=== PATIENT | female | born 1990 | race Caucasian/White ===

== ENCOUNTER 2020-03-08 09:28 | Inpatient (IN) | payer MEDICAID ==
[2020-03-08 10:16] LABS: APPEARANCE,URINE CLEAR; BILIRUBIN,URINE NEGATIVE (NEGATIVE); COLOR,URINE YELLOW; GLUCOSE, URINE NEGATIVE (NEGATIVE); KETONES,URINE NEGATIVE (NEGATIVE); LEUKOCYTE ESTERASE,URINE TRACE (NEGATIVE); NITRITE,URINE NEGATIVE (NEGATIVE); PROTEIN,URINE NEGATIVE (NEGATIVE); URINE SPECIFIC GRAVITY 1.003; UROBILINOGEN,URINE NEGATIVE mg/dL (<2.0)
--- NOTE | 2020-03-08 10:28 | Admission Physical ---
Datetime Report Generated by CPN: 03/08/2020 10:28 CURRENT ADMISSION Hx Assessment: The History has been Reviewed and is Current Chief Complaint: Sent from OB Office for Evaluation and Treatment - Please Specify Indication for Induction: Chronic Secondary HTN (Specify Cause); Gestational HTN; PreEclampsia Admit Impression : Term, Intrauterine Admit Plan: Admit to Unit; Initiate Labor Induction Protocol ALLERGIES Medication Allergies: No Known Allergies (03/08/2020) OBSTETRICAL HISTORY EDC: 03/10/2020 00:00 : 1 Para: 0 Term: 0 : 0 SAB: 0 IAB: 0 Ectopic: 0 Livin Cesareans: 0 VBACs: 0 Multiple Births: 0 PHYSICAL EXAM General: Normal Heart: Normal Lungs: Normal Abdomen: Normal Extremities: Normal Pelvic Type: Adequate Vital Signs: Reviewed Details Vital Signs: severe-mild range MEMBRANES Membranes: Intact FETUS A EGA: 39.5 Monitoring: External US Decelerations: None FHR Category: Category I Presentation: Vertex Admit Comment: 30yo G1 @ 39w5d sent from office with severe range bp which was also elevated on arrival at [facility]. Pt is AB pos,GBS neg, RI. Significant hx this of GDM A1, chlamydia @ [facility], anemia, anxiety,e-coli UTI with negative EDDIE. First elevation in BP was noted at 6wga at [facility] and then borderline bps until 3rd trim when they became elevated again. Pt completed a 24hr urine at 35wga and it was over 3000mg; but pt reported she had been taking a tea that changed the color of her urine and wanted to repeat 24hr urine once she stopped the tea. Pt repeated 24hr x2 with results of less than 300mg (166,127) continues to deny all s/s of pre-e but BPs remained elevated. PIH labs on arrival today but plan was made to go ahead with IOL secondary to CHTN vs pre-e vs GHTN. FOB not involved and mother is the support person with pt today. Dr. Rogel is the OB design verification engineer today and aware of plan. INFORMED CONSENT Assignment: Pushpa Rogel MD Signature: with User ID: [email or web address] : with User ID: [email or web address]
[2020-03-08 10:31] LABS: URINE AMPHETAMINES SCREEN NEGATIVE; URINE BARBITURATES SCREEN NEGATIVE; URINE BENZODIAZEPINES SCREEN NEGATIVE; URINE COCAINE SCREEN NEGATIVE; URINE MARIJUANA (THC) SCREEN NEGATIVE; URINE METHADONE SCREEN NEGATIVE; URINE PHENCYCLIDINE SCREEN NEGATIVE
[2020-03-08 10:36] LABS: URINE CREATININE 26.8 mg/dL (16-327); URINE PROTEIN 53.2 mg/dL (<12)
[2020-03-08 10:49] LABS: ABSOLUTE LYMPHOCYTES (AUTO) 1.9 10^3/uL (0.5-4.7); ABSOLUTE MONOCYTES (AUTO) 0.4 10^3/uL (0.1-1.4); ABSOLUTE NEUT (AUTO) 5.5 10^3/uL (1.7-8.2); BASOPHILS % (AUTO) 0.5 % (0-2); EOSINOPHILS % (AUTO) 0.5 % (0-6); HEMATOCRIT 32.6 % (36.0-47.0); HEMOGLOBIN 11.6 g/dL (12.0-15.5); MEAN CORPUSCULAR HEMOGLOBIN 31.9 pg (27.0-33.4); MEAN CORPUSCULAR HGB CONC 35.5 g/dL (32.0-36.0); MEAN CORPUSCULAR VOLUME 90 fl (80-97); MONOCYTES % (AUTO) 5.6 % (3-13); PLATELET COUNT 100 10^3/uL (150-450); RED BLOOD COUNT 3.63 10^6/uL (3.72-5.28); RED CELL DISTRIBUTION WIDTH 13.8 % (11.5-14.0); SEGMENTED NEUTROPHILS % (AUTO) 69.4 % (42-78); TOTAL CELLS COUNTED % (AUTO) 100 %
[2020-03-08] MEDS ORDERED: OXYTOCIN/NORMAL SALINE 20 UNIT/1,000 ML RTUINJ IV PRN (11:03)
[2020-03-08 11:09] LABS: ALBUMIN 3.1 g/dL (3.5-5.0); ALKALINE PHOSPHATASE 209 U/L (38-126); ANION GAP 8 (5-19); ASPARTATE AMINO TRANSFERASE 26 U/L (14-36); BILIRUBIN,TOTAL 0.2 mg/dL (0.2-1.3); BLOOD UREA NITROGEN 4 mg/dL (7-20); CALCIUM 8.8 mg/dL (8.4-10.2); CARBON DIOXIDE 19 mmol/L (22-30); CHLORIDE 107 mmol/L (98-107); GLUCOSE 119 mg/dL (75-110); POTASSIUM 3.6 mmol/L (3.6-5.0); TOTAL PROTEIN 6.1 g/dL (6.3-8.2); URIC ACID 4.2 mg/dL (2.5-6.2)
[2020-03-08] MEDS ORDERED: MISOPROSTOL 0.2 MG TABLET ONE (11:18)
[2020-03-08] MEDS ORDERED: OXYTOCIN 10 UNIT/ML VIAL ONE (11:18)
[2020-03-08] MEDS ORDERED: OXYTOCIN/NORMAL SALINE 20 UNIT/1,000 ML RTUINJ ONE (11:18)
[2020-03-08] MEDS ORDERED: LIDOCAINE 1% INJ-PF (10 MG/ML) 30 ML SDV ONE (11:18)
[2020-03-08] MEDS ORDERED: MAG HYDROX/AL HYDROX/SIMETH SUSP 30 ML UDCUP ONE (12:38)
[2020-03-08] MEDS ORDERED: HYDRALAZINE HCL INJ/PF 20 MG/1 ML SDV IV ONE (12:44)
[2020-03-08] MEDS ORDERED: MAG HYDROX/AL HYDROX/SIMETH SUSP 30 ML UDCUP PO ONE (12:44)
[2020-03-08] MEDS ORDERED: RINGERS SOLUTION,LACTATED 1,000 ML IV PRN (12:45)
[2020-03-08] MEDS ORDERED: HYDRALAZINE HCL INJ/PF 20 MG/1 ML SDV ONE (12:47)
[2020-03-08] MEDS ORDERED: PROMETHAZINE HCL INJ 25 MG/1 ML VIAL IV ONE (12:54)
[2020-03-08] MEDS ORDERED: PROMETHAZINE HCL INJ 25 MG/1 ML VIAL ONE (12:59)
--- NOTE | 2020-03-08 14:35 | Warning Signs in Babies ---
VOD Warning Signs Datetime Report Generated by [facility]: 03/08/2020 14:35 VOD#608 -Warning Signs in Babies: Viewed with Parent(s)/Family (03/08/2020 09:44:Magdalena Johnson RN)
[2020-03-08 15:07] LABS: HEMATOCRIT 34.4 % (36.0-47.0); HEMOGLOBIN 12.1 g/dL (12.0-15.5); MEAN CORPUSCULAR HEMOGLOBIN 31.6 pg (27.0-33.4); MEAN CORPUSCULAR HGB CONC 35.1 g/dL (32.0-36.0); MEAN CORPUSCULAR VOLUME 90 fl (80-97); PLATELET COUNT 100 10^3/uL (150-450); RED BLOOD COUNT 3.81 10^6/uL (3.72-5.28); RED CELL DISTRIBUTION WIDTH 14.2 % (11.5-14.0); WHITE BLOOD COUNT 8.5 10^3/uL (4.0-10.5)
[2020-03-08] MEDS ORDERED: ONDANSETRON HCL INJ/PF 4 MG/2 ML SDV ONE ×2 (18:39→21:35)
[2020-03-08] MEDS ORDERED: ONDANSETRON HCL INJ/PF 4 MG/2 ML SDV IV ONE ×2 (18:39→21:30)
[2020-03-08] MEDS ORDERED: DEXTROSE 5%-LACTATED RINGERS 250 ML IV PRN (19:20)
[2020-03-08 20:20] LABS: HEMATOCRIT 35.6 % (36.0-47.0); HEMOGLOBIN 12.3 g/dL (12.0-15.5); MEAN CORPUSCULAR HEMOGLOBIN 31.5 pg (27.0-33.4); MEAN CORPUSCULAR HGB CONC 34.7 g/dL (32.0-36.0); MEAN CORPUSCULAR VOLUME 91 fl (80-97); PLATELET COUNT 101 10^3/uL (150-450); RED BLOOD COUNT 3.92 10^6/uL (3.72-5.28); RED CELL DISTRIBUTION WIDTH 14.3 % (11.5-14.0); WHITE BLOOD COUNT 11.9 10^3/uL (4.0-10.5)
[2020-03-08] MEDS ORDERED: FAMOTIDINE INJ/PF 20 MG/2 ML SDV IV ONE ×2 (21:30→21:35)
[2020-03-08] MEDS ORDERED: NALBUPHINE HCL INJ 10 MG/1 ML AMPULE INJ ONE (21:35)
[2020-03-08] MEDS ORDERED: NALBUPHINE HCL INJ 10 MG/1 ML AMPULE ONE (21:35)
[2020-03-09] MEDS ORDERED: EPHEDRINE SULFATE INJ 50 MG/1 ML AMPULE ONE (00:13)
[2020-03-09] MEDS ORDERED: BUPIVACAINE HCL 0.25 % INJ/PF (2.5 MG/1 ML) 30 ML VIAL ONE (00:13)
[2020-03-09] MEDS ORDERED: FENTANYL/BUPIVACAINE/NS/PF 300 MCG/150 ML RTUINJ EPI ONE (00:13)
[2020-03-09] MEDS ORDERED: OXYTOCIN/NORMAL SALINE 20 UNIT/1,000 ML RTUINJ ONE (05:07)
[2020-03-09] MEDS ORDERED: OXYTOCIN/NORMAL SALINE 20 UNIT/1,000 ML RTUINJ IV PRN (06:43)
[2020-03-09] MEDS ORDERED: DIPH/PERTUSS(ACELL)/TETANUS VAC/PF 0.5 ML SYR (>=10YO) IM PRN (06:43)
[2020-03-09] MEDS ORDERED: BENZOCAINE/MENTHOL AEROSOL SPRAY 56 ML TOP PRN (06:43)
[2020-03-09] MEDS ORDERED: GLYCERIN/WITCH HAZEL LEAF 1 EACH MED..WIPE TP PRN (06:43)
[2020-03-09] MEDS ORDERED: ACETAMINOPHEN 325 MG TABLET PO PRN (06:43)
[2020-03-09] MEDS ORDERED: MEASLES,MUMPS&RUBELLA VACC/PF 0.5 ML VIAL SUBCUT PRN (06:43)
[2020-03-09] MEDS ORDERED: NA PHOS,M-B/NA PHOS,DI-BA (ADULT) 133 ML ENEMA PR PRN (06:43)
[2020-03-09] MEDS ORDERED: PSEUDOEPHEDRINE HCL 30 MG TABLET PO PRN (06:43)
[2020-03-09] MEDS ORDERED: ZOLPIDEM TARTRATE 5 MG TABLET PO PRN (06:43)
[2020-03-09] MEDS ORDERED: ACETAMINOPHEN WITH CODEINE #3 TABLET PO PRN ×2 (06:43)
[2020-03-09] MEDS ORDERED: PROMETHAZINE HCL 25 MG TABLET PO PRN (06:43)
[2020-03-09] MEDS ORDERED: PROMETHAZINE HCL 25 MG SUPP.RECT PR PRN (06:43)
[2020-03-09] MEDS ORDERED: PROMETHAZINE HCL INJ 25 MG/1 ML VIAL IV PRN (06:43)
[2020-03-09] MEDS ORDERED: DIPHENHYDRAMINE HCL 25 MG CAPSULE PO PRN (06:43)
[2020-03-09] MEDS ORDERED: MAGNESIUM HYDROXIDE SUSP 30 ML UDCUP PO PRN (06:43)
[2020-03-09] MEDS ORDERED: DIBUCAINE 1% OINTMENT 28 GM TP PRN (06:43)
[2020-03-09] MEDS ORDERED: MISOPROSTOL 0.2 MG TABLET PR PRN (06:43)
--- NOTE | 2020-03-09 08:06 | PDOC CONSULTATION ---
Consultation Consult Date: 03/09/20 Attending physician:: THERESA CHE Provider Consulted: TESSIE SPEARS Consult reason:: Thrombocytopenia History of Present Illness Admission Date/PCP: 03/08/20 10:06 LOUIS LANDEROS CNM Patient complains of: Easy bruising History of Present Illness: ROMMEL FERNANDEZ is a 30 year old female w/ recent and delivery this am, was found recently to have preeclampsia, reviewed labs and 24 hr urine protein was over 3g/24hr. Albumin low. Plt ct on admit was 100 yestterday, repeated this am was 101. Labs from [address] done in [employer] office in january was 145. Pt notes to Pharmacoepidemiologist that she has had some easy bruising and gum bleeding recently. Coags/fibrinogen and peripheral smear is pending. No other active bleeding that is out of the ordinary noted thus far. Past Medical History Medical History: None Past Surgical History Past Surgical History: Reports: None Social History Information Source: Patient Smoking Status: Unknown if Ever Smoked Frequency of Alcohol Use: Rare Hx Recreational Drug Use: No Drugs: None Hx Prescription Drug Abuse: No - Advance Directive Resuscitation Status: Full Code Family History Family History: Reviewed & Not Pertinent Parental Family History Reviewed: Yes Children Family History Reviewed: Yes Sibling(s) Family History Reviewed.: Yes Medication/Allergy Home Medications: Promethazine HCl [Phenergan 25 mg Tablet] 25 - 50 mg PO ASDIR PRN #12 tablet 03/31/13 Famotidine [Pepcid] 20 mg PO DAILY 03/08/20 Ferrous Sulfate [Ferrousul] 325 mg PO BID 03/08/20 Vitamin [-U Multiple Vitamin Capsule] 1 cap PO DAILY 03/08/20 Allergies/Adverse Reactions: No Known Allergies Allergy (Unverified 03/08/20 09:38) Review of Systems Constitutional: ABSENT: chills, fever(s), headache(s), weight gain, weight loss Eyes: ABSENT: visual disturbances Ears: ABSENT: hearing changes Cardiovascular: ABSENT: chest pain, dyspnea on exertion, edema, orthropnea, palpitations Respiratory: ABSENT: cough, hemoptysis Gastrointestinal: ABSENT: abdominal pain, constipation, diarrhea, hematemesis, hematochezia, nausea, vomiting Genitourinary: ABSENT: dysuria, hematuria Musculoskeletal: ABSENT: joint swelling Integumentary: ABSENT: rash, wounds Neurological: ABSENT: abnormal gait, abnormal speech, confusion, dizziness, focal weakness, syncope Psychiatric: ABSENT: anxiety, depression, homidical ideation, suicidal ideation Endocrine: ABSENT: cold intolerance, heat intolerance, polydipsia, polyuria Hematologic/Lymphatic: ABSENT: easy bleeding, easy bruising Physical Exam Vital Signs: Intake & Output 03/08/20 03/09/20 03/10/20 06:59 06:59 06:59 Weight 81.8 kg Results Laboratory Results: 03/08/20 19:58 03/08/20 10:00 03/08/20 03/08/20 03/08/20 09:40 10:00 10:00 WBC 8.0 RBC 3.63 L Hgb 11.6 L Hct 32.6 L MCV 90 MCH 31.9 MCHC 35.5 RDW 13.8 Plt Count 100 L Seg Neutrophils % 69.4 Sodium 134.4 L Potassium 3.6 Chloride 107 Carbon Dioxide 19 L Anion Gap 8 BUN 4 L Creatinine 0.47 L Est GFR ( Amer) > 60 Glucose 119 H Uric Acid 4.2 Calcium 8.8 Total Bilirubin 0.2 AST 26 Alkaline Phosphatase 209 H Total Protein 6.1 L Albumin 3.1 L Urine Color YELLOW Urine Appearance CLEAR Urine pH 7.0 Ur Specific [place] 1.003 Urine Protein NEGATIVE Urine Glucose (UA) NEGATIVE Urine Ketones NEGATIVE Urine Blood SMALL H Urine Nitrite NEGATIVE Ur Leukocyte Esterase TRACE H Urine WBC (Auto) 2 Urine RBC (Auto) 0 Blood Type Antibody Screen 03/08/20 03/08/20 03/08/20 10:00 14:37 19:58 WBC 8.5 11.9 H RBC 3.81 3.92 Hgb 12.1 12.3 Hct 34.4 L 35.6 L MCV 90 91 MCH 31.6 31.5 MCHC 35.1 34.7 RDW 14.2 H 14.3 H Plt Count 100 L 101 L Seg Neutrophils % Sodium Potassium Chloride Carbon Dioxide Anion Gap BUN Creatinine Est GFR ( Amer) Glucose Uric Acid Calcium Total Bilirubin AST Alkaline Phosphatase Total Protein Albumin Urine Color Urine Appearance Urine pH Ur Specific [place] Urine Protein Urine Glucose (UA) Urine Ketones Urine Blood Urine Nitrite Ur Leukocyte Esterase Urine WBC (Auto) Urine RBC (Auto) Blood Type AB POSITIVE Antibody Screen NEGATIVE Assessment & Plan - Diagnosis (1) Thrombocytopenia affecting Is this a current diagnosis for this admission?: Yes Plan: Maybe related to preeclampsia or just thrombocytopenia of , ITP or DIC another possibility, coags pending, most likely will resolve with time. Epidural catheter can be removed, neurosurgical/spine interventions can be done very safely w/ plt ct 100. Will follow. - Time Time Spent: 50 to 70 Minutes
[2020-03-09 08:13] LABS: HEMATOCRIT 33.5 % (36.0-47.0); HEMOGLOBIN 11.8 g/dL (12.0-15.5); MEAN CORPUSCULAR HEMOGLOBIN 31.9 pg (27.0-33.4); MEAN CORPUSCULAR HGB CONC 35.2 g/dL (32.0-36.0); MEAN CORPUSCULAR VOLUME 91 fl (80-97); PLATELET COUNT 105 10^3/uL (150-450); RED CELL DISTRIBUTION WIDTH 13.9 % (11.5-14.0); WHITE BLOOD COUNT 17.4 10^3/uL (4.0-10.5)
[2020-03-09 08:19] LABS: PARTIAL THROMBOPLASTIN TIME 26.6 SEC (23.5-35.8)
[2020-03-09 08:38] LABS: ALBUMIN 2.7 g/dL (3.5-5.0); ALKALINE PHOSPHATASE 220 U/L (38-126); ANION GAP 8 (5-19); ASPARTATE AMINO TRANSFERASE 34 U/L (14-36); BILIRUBIN,TOTAL 0.4 mg/dL (0.2-1.3); BLOOD UREA NITROGEN 4 mg/dL (7-20); CALCIUM 8.1 mg/dL (8.4-10.2); CARBON DIOXIDE 19 mmol/L (22-30); CHLORIDE 107 mmol/L (98-107); GLUCOSE 132 mg/dL (75-110); POTASSIUM 3.6 mmol/L (3.6-5.0); TOTAL PROTEIN 5.5 g/dL (6.3-8.2); URIC ACID 4.9 mg/dL (2.5-6.2)
[2020-03-09 08:44] LABS: ABSOLUTE LYMPHOCYTES# (MANUAL) 1.7 10^3/uL (0.5-4.7); ABSOLUTE MONOCYTES # (MANUAL) 0.9 10^3/uL (0.1-1.4); BASOPHILS % (MANUAL) 0 % (0-2); EOSINOPHILS % (MANUAL) 0 % (0-6); LYMPHOCYTES % (MANUAL) 10 % (13-45); MONOCYTES % (MANUAL) 5 % (3-13); SEGMENTED NEUTROPHILS % (MAN) 85 % (42-78); TOTAL CELLS COUNTED 100
[2020-03-09 08:47] LABS: PLATELET COMMENT DECREASED; PLATELET LARGE PRESENT
[2020-03-09] MEDS ORDERED: BENZOCAINE/MENTHOL AEROSOL SPRAY 56 ML ONE (08:47)
[2020-03-09 08:48] LABS: OVALOCYTES SLIGHT; POLYCHROMASIA SLIGHT; TOXIC VACUOLATION PRESENT
[2020-03-09 08:56] LABS: PROTHROMBIN TIME 13.2 SEC (11.4-15.4)
--- NOTE | 2020-03-09 09:37 | Delivery Summary ---
Del Sum A-C Datetime Report Generated by CPN: 03/09/2020 09:36 DELIVERY PERSONNEL DELIVERY PERSONNEL: [id number] Delivery Doctor:: Pushpa Rogel MD Anesthesiologist:: Rodriguez SAFETY REPRESENTATIVE:: Caryn Ayoub CRNA Labor and Delivery Nurse:: Chanelle Barrios RNroad train driver Nurse:: REBECCA Figueroa Corrosion Technician/STORAGE RECEIPT POSTER: ST Rema Corrosion Technician/STORAGE RECEIPT POSTER: Raeann Taye, FORENSIC SPECIALIST MATERNAL INFORMATION Delivery Anesthesia: Epidural Medications After Delivery: Cytotec 1000mcg Per Rectum/Vagina Estimated Blood Loss (ml): 100 Delivery QBL: 100 Maternal Complications: None Provider Comments: VMI delivered in [facility] presentation with compound right hand. Shoulders and body delivered without difficulty. cord doubly clamped and cut and to maternal abdomen for NRP. Placenta delivered intact spontaneously. FF at U. superficial perineal laceration with good hemostasis after repair. Bladder drained to intermittent atony. Cytotec 1000mcg per rectum given. Mother and baby stable upon provider leaving the room. LABOR SUMMARY EDC: 03/10/2020 00:00 No. Babies in Womb: 1 Attempted: No Labor Anesthesia: Epidural LABOR INFORMATION Reason for Induction: Pre-Eclampsia Onset of Labor: 03/09/2020 01:09 Complete Dilatation: 03/09/2020 04:18 Cervical Ripening Agents: Cervidil Oxytocin: Induction Group B Beta Strep: Negative Antibiotics # of Doses: n/a Steroids Given: None Reason Steroids Not Administered: Not Applicable MEMBRANES Membranes Rupture Method: Artificial Rupture of Membranes: 03/08/2020 16:10 Length of Rupture (hr): 14.08 Amniotic Fluid Color: Clear Amniotic Fluid Amount: Moderate Amniotic Fluid Odor: None STAGES OF LABOR Stage 1 hr: 3 Stage 1 min: 9 Stage 2 hr: 1 Stage 2 min: 57 Stage 3 hr: 0 Stage 3 min: 5 Total Time in Labor hr: 5 Total Time in Labor min: 11 VAGINAL DELIVERY Episiotomy: None Laceration #1: Perineal Laceration Extension #1: N/A Laceration Repair: Yes Laceration Repair Note: superficial perineal laceration, good hemostasis with repair Sponge Count Correct: Yes Sharps Count Correct: Yes CSECTION DELIVERY Primary Indication: N/A Secondary Indication: N/A CSection Incidence: N/A Labor: N/A Elective: N/A CSection Incision: N/A BABY A INFORMATION Infant Delivery Date/Time: 03/09/2020 06:15 Method of Delivery: Vaginal Born in Route : No : N/A Forceps: N/A Vacuum Extraction: N/A Shoulder Dystocia : No PRESENTATION/POSITION BABY A Presentation: Cephalic Cephalic Presentation: Vertex Vertex Position: Right Occipital Anterior Breech Presentation: N/A PLACENTA INFORMATION BABY A Placenta Delivery Time : 03/09/2020 06:20 Placenta Method of Delivery: Spontaneous Placenta Status: Delivered SCORES BABY A Heart Rate 1 min: >100 bpm Resp Effort 1 min: Good Cry Reflex Irritability 1 min: Cough or Sneeze or Pulls Away Muscle Tone 1 min: Active Motion Color 1 min: Body [place], Extremities Blue Resuscitation Effort 1 min: Tactile Stimulation SCORE 1 MIN: 9 Heart Rate 5 min: >100 bpm Resp Effort 5 min: Good Cry Reflex Irritability 5 min: Cough or Sneeze or Pulls Away Muscle Tone 5 min: Active Motion Color 5 min: Body [place], Extremities Blue Resuscitation Effort 5 min: Tactile Stimulation SCORE 5 MIN: 9 INFORMATION BABY A Gestational Age at Delivery: 39.6 Gestational Status: Full Term- 39- 40.6 Weeks Infant Outcome : Liveborn Condition : Stable Infant Sex: Male IDENTIFICATION BABY A Infant Verification Date/Time: 03/09/2020 06:24 ID Band Number: [id number] Mother's Name Verified: Yes Infant RN Verifying : Yolette Barrios, RN Additional Verifying Personnel: LChadwick Matta, FORENSIC SPECIALIST WEIGHT/LENGTH BABY A Infant Birthweight (gm): 3375 Weight (lb): 7 Infant Weight (oz): 7 Infant Length (in): 20.50 Length (cm): 52.07 CORD INFORMATION BABY A No. Cord Vessels: 3 Nuchal Cord : N/A Nuchal Cord- Other: compound right hand Cord Blood Taken: Yes-For Storage (Mom's Blood type +) Suction: Mouth ASSESSMENT BABY A Skin to Skin: Yes Skin to Skin Time (min): 40 BABY B INFORMATION : N/A SIGNATURES Signature: with User ID: [email or web address]
[2020-03-09] MEDS: SENNOSIDES/DOCUSATE 8.6-50 MG 1 EACH TABLET PO SCH (10:12)
[2020-03-09] MEDS: DOCUSATE SODIUM 100 MG CAPSULE PO SCH ×2 (10:12→18:30)
[2020-03-09] MEDS: FAMOTIDINE 20 MG TABLET PO SCH ×3 (10:12→21:12)
[2020-03-09] MEDS: PRENATAL VITAMIN W DHA CAPSULE PO SCH (10:12)
[2020-03-09] MEDS: FERROUS SULFATE 325 MG TABLET PO SCH ×2 (10:12→18:30)
[2020-03-09] MEDS: IBUPROFEN 800 MG TABLET PO SCH ×2 (14:09→21:12)
[2020-03-10] MEDS: IBUPROFEN 800 MG TABLET PO SCH ×3 (05:08→21:45)
[2020-03-10 06:58] LABS: HEMATOCRIT 30.3 % (36.0-47.0); HEMOGLOBIN 10.7 g/dL (12.0-15.5); MEAN CORPUSCULAR HEMOGLOBIN 31.8 pg (27.0-33.4); MEAN CORPUSCULAR HGB CONC 35.3 g/dL (32.0-36.0); MEAN CORPUSCULAR VOLUME 90 fl (80-97); RED BLOOD COUNT 3.35 10^6/uL (3.72-5.28); RED CELL DISTRIBUTION WIDTH 14.3 % (11.5-14.0); WHITE BLOOD COUNT 11.5 10^3/uL (4.0-10.5)
[2020-03-10 07:32] LABS: PLATELET COUNT 93 10^3/uL (150-450)
--- NOTE | 2020-03-10 08:14 | PDOC PROGRESS REPORT ---
Subjective Progress Note for:: 03/10/20 Subjective:: Pt ct dropped a bit to 93, notes reviewed, does not seem that pt has any active bleeding. Reason For Visit: Physical Exam Vital Signs: Temp Pulse Resp BP Pulse Ox 97.5 F 71 20 128/84 H 98 03/10/20 04:00 03/10/20 04:00 03/10/20 04:00 03/10/20 04:00 03/10/20 04:00 Intake & Output 03/09/20 03/10/20 03/11/20 06:59 06:59 06:59 Intake Total 1000 Balance 1000 Weight 81.8 kg Results Laboratory Results: 03/10/20 06:42 03/09/20 07:53 03/09/20 03/09/20 03/10/20 07:53 07:53 06:42 WBC 17.4 H 11.5 H RBC 3.70 L 3.35 L Hgb 11.8 L 10.7 L Hct 33.5 L 30.3 L MCV 91 90 MCH 31.9 31.8 MCHC 35.2 35.3 RDW 13.9 14.3 H Plt Count 105 L 93 L Seg Neutrophils % Not Reportable Sodium 133.6 L Potassium 3.6 Chloride 107 Carbon Dioxide 19 L Anion Gap 8 BUN 4 L Creatinine 0.57 Est GFR ( Amer) > 60 Glucose 132 H Uric Acid 4.9 Calcium 8.1 L Total Bilirubin 0.4 AST 34 Alkaline Phosphatase 220 H Total Protein 5.5 L Albumin 2.7 L Assessment & Plan - Diagnosis (1) Thrombocytopenia affecting Is this a current diagnosis for this admission?: Yes Plan: Maybe multifactorial. Upon d/c pt should have f/u in our office in 2-3 weeks to retest plt ct. We can make arrangments - Time Time Spent with patient: Less than 15 minutes
[2020-03-10] MEDS: FERROUS SULFATE 325 MG TABLET PO SCH ×2 (10:03→18:35)
[2020-03-10] MEDS: FAMOTIDINE 20 MG TABLET PO SCH ×3 (10:03→21:45)
[2020-03-10] MEDS: PRENATAL VITAMIN W DHA CAPSULE PO SCH (10:04)
[2020-03-10] MEDS: SENNOSIDES/DOCUSATE 8.6-50 MG 1 EACH TABLET PO SCH (10:04)
[2020-03-10] MEDS: DOCUSATE SODIUM 100 MG CAPSULE PO SCH ×2 (10:04→18:35)
[2020-03-10 11:06] LABS: PATH REVIEW PATHOLOGIST REVIEWED
--- NOTE | 2020-03-10 11:17 | PDOC PROGRESS REPORT ---
Subjective-OB Progress Note for:: 03/10/20 Subjective: 30 yo G1 now P1 s/p ppd 1. Pt ambulating, voiding and without difficulty. Reports pain well controlled with medication, no concerns today Physical Exam (OB) Vital Signs: Temp Pulse Resp BP Pulse Ox 97.6 F 77 16 116/69 98 03/10/20 08:00 03/10/20 08:00 03/10/20 08:00 03/10/20 08:00 03/10/20 08:00 Intake & Output 03/09/20 03/10/20 03/11/20 06:59 06:59 06:59 Intake Total 1000 Balance 1000 Weight 81.8 kg - General General Appearance: Appears well In distress: None - PIH/Pre-Eclampsia Headache: Absent Epigastric Pain: No Visual Changes: No - Episiotomy/Laceration Site Condition: Well Approximated - Lochia Lochia Amount: Small 10-25 ml Lochia Color: Rubra/Red - Abdomen Description: Soft Hernia Present: No Fundal Description: Firm, Midline Fundal Height: u/u - u/2 - Respiratory Respiratory Status: No respiratory distress - Extremities Upper extremity: Normal inspection Lower extremities: Normal inspection - Neurological Cognition: Normal Orientation: AAOx4 - Psychological Associated symptoms: Normal affect, Normal mood Objective-Diagnostic Laboratory: 03/10/20 06:42 03/09/20 07:53 03/10/20 06:42 WBC 11.5 H RBC 3.35 L Hgb 10.7 L Hct 30.3 L MCV 90 MCH 31.8 MCHC 35.3 RDW 14.3 H Plt Count 93 L Assessment and Plan(PN) - Assessment and Plan (1) Acute blood loss anemia Is this a current diagnosis for this admission?: Yes Plan: increase dietary iron and FeSO4 BID (2) Vaginal delivery Is this a current diagnosis for this admission?: Yes Plan: Routine pp care (3) Vaginal abrasion, delivered, current hospitalization Is this a current diagnosis for this admission?: Yes Plan: continue to monitor for s/s of infection (4) Thrombocytopenia affecting Is this a current diagnosis for this admission?: Yes (5) Pre-eclampsia Qualifiers: Trimester: third trimester Qualified Code(s): O14.93 - Unspecified pre-eclampsia, third trimester Is this a current diagnosis for this admission?: Yes Plan: delivered, continue to monitor for s/s of pre-e (6) Gestational diabetes mellitus (GDM) affecting first Is this a current diagnosis for this admission?: Yes Plan: delivered, will monitor fasting in the period as indicated (7) History of anxiety Is this a current diagnosis for this admission?: Yes Plan: has good support system, continue to monitor for s/s of depression (8) Qualifiers: Weeks of gestation: 39 weeks Qualified Code(s): Z3A.39 - 39 weeks gestation of Is this a current diagnosis for this admission?: Yes Plan: delivered - Time Spent with Patient Time with patient: Less than 15 minutes Medications reviewed and adjusted accordingly: Yes - Disposition Anticipated Discharge: Home Within: within 24 hours
[2020-03-11] MEDS: IBUPROFEN 800 MG TABLET PO SCH (06:23)
[2020-03-11 08:35] VITALS: BP 138/95
--- NOTE | 2020-03-11 10:05 | PDOC DISCHARGE SUMMARY ---
Impression - Admit/DC Date/PCP Admission Date/Primary Care Provider: 03/08/20 10:06 LOUIS LANDEROS CNM Discharge Date: 03/11/20 - PP Day #2, doing well, no complaints, baby may need to stay overnight due to Juandice issues. Hx Low Plts, pt to f/up with Heme/Onc Pt is , AB+, Rubella Immune - Additional Information Resuscitation Status: Full Code Discharge Diet: As Tolerated Discharge Activity: Activity As Tolerated, No Lifting Over 10 Pounds, Pelvic Rest Referrals: LOUIS LANDEROS CNM [Primary Care Provider] - TESSIE SPEARS MD [ACTIVE STAFF] - 03/29/20 10:00 am (CALL THE OFFICE FOR QUESTIONS AND CONCERNS.) Prescriptions: Acetaminophen with Codeine [Tylenol #3 Tablet] 1 each PO Q4HP PRN #30 tablet PRN Reason: Pain Scale Of 3 Home Medications: Ferrous Sulfate [Ferrousul] 325 mg PO BID 03/08/20 Vitamin [-U Multiple Vitamin Capsule] 1 cap PO DAILY 03/08/20 Acetaminophen with Codeine [Tylenol #3 Tablet] 1 each PO Q4HP PRN #30 tablet 03/11/20 HPI Reason(s) for Admission: Induction of Labor Complication(s): Laceration-Perineal, Other - low plts this Results Laboratory Results: WBC 11.5 10^3/uL (4.0-10.5) H 03/10/20 06:42 RBC 3.35 10^6/uL (3.72-5.28) L 03/10/20 06:42 Hgb 10.7 g/dL (12.0-15.5) L 03/10/20 06:42 Hct 30.3 % (36.0-47.0) L 03/10/20 06:42 MCV 90 fl (80-97) 03/10/20 06:42 MCH 31.8 pg (27.0-33.4) 03/10/20 06:42 MCHC 35.3 g/dL (32.0-36.0) 03/10/20 06:42 RDW 14.3 % (11.5-14.0) H 03/10/20 06:42 Plt Count 93 10^3/uL (150-450) L 03/10/20 06:42 Lymph % (Auto) Not Reportable 03/09/20 07:53 [place] % (Auto) Not Reportable 03/09/20 07:53 Eos % (Auto) Not Reportable 03/09/20 07:53 Baso % (Auto) Not Reportable 03/09/20 07:53 Absolute Neuts (auto) Not Reportable 03/09/20 07:53 Absolute Lymphs (auto) Not Reportable 03/09/20 07:53 Absolute Monos (auto) Not Reportable 03/09/20 07:53 Absolute Eos (auto) Not Reportable 03/09/20 07:53 Absolute Basos (auto) Not Reportable 03/09/20 07:53 Total Counted 100 03/09/20 07:53 Seg Neutrophils % Not Reportable 03/09/20 07:53 Seg Neuts % (Manual) 85 % (42-78) H 03/09/20 07:53 Lymphocytes % (Manual) 10 % (13-45) L 03/09/20 07:53 Monocytes % (Manual) 5 % (3-13) 03/09/20 07:53 Eosinophils % (Manual) 0 % (0-6) 03/09/20 07:53 Basophils % (Manual) 0 % (0-2) 03/09/20 07:53 Abs Neuts (Manual) 14.8 10^3/uL (1.7-8.2) H 03/09/20 07:53 Abs Lymphs (Manual) 1.7 10^3/uL (0.5-4.7) 03/09/20 07:53 Abs Monocytes (Manual) 0.9 10^3/uL (0.1-1.4) 03/09/20 07:53 Absolute Eos (Manual) 0.0 10^3/uL (0.0-0.6) 03/09/20 07:53 Abs Basophils (Manual) 0.0 10^3/uL (0.0-0.2) 03/09/20 07:53 Toxic Vacuolation PRESENT 03/09/20 07:53 Large Platelets PRESENT 03/09/20 07:53 Platelet Comment DECREASED 03/09/20 07:53 Polychromasia SLIGHT 03/09/20 07:53 Ovalocytes SLIGHT 03/09/20 07:53 PT 13.2 SEC (11.4-15.4) 03/09/20 07:53 INR 1.00 03/09/20 07:53 APTT 26.6 SEC (23.5-35.8) 03/09/20 07:53 Fibrinogen 530 mg/dL (209-497) H 03/09/20 07:53 Sodium 133.6 mmol/L (137-145) L 03/09/20 07:53 Potassium 3.6 mmol/L (3.6-5.0) 03/09/20 07:53 Chloride 107 mmol/L (98-107) 03/09/20 07:53 Carbon Dioxide 19 mmol/L (22-30) L 03/09/20 07:53 Anion Gap 8 (5-19) 03/09/20 07:53 BUN 4 mg/dL (7-20) L 03/09/20 07:53 Creatinine 0.57 mg/dL (0.52-1.25) 03/09/20 07:53 Est GFR ( Amer) > 60 (>60) 03/09/20 07:53 Est GFR (MDRD) Non-Af > 60 (>60) 03/09/20 07:53 Glucose 132 mg/dL (75-110) H 03/09/20 07:53 Uric Acid 4.9 mg/dL (2.5-6.2) 03/09/20 07:53 Calcium 8.1 mg/dL (8.4-10.2) L 03/09/20 07:53 Total Bilirubin 0.4 mg/dL (0.2-1.3) 03/09/20 07:53 Direct Bilirubin 0.0 mg/dL (0.0-0.4) 03/09/20 07:53 Neonat Total Bilirubin Not Reportable 03/09/20 07:53 Neonat Direct Bilirubin Not Reportable 03/09/20 07:53 Neonat Indirect Bili Not Reportable 03/09/20 07:53 AST 34 U/L (14-36) 03/09/20 07:53 ALT 12 U/L (<35) 03/09/20 07:53 Alkaline Phosphatase 220 U/L (38-126) H 03/09/20 07:53 Lactate Dehydrogenase 193 U/L (120-246) 03/09/20 07:53 Total Protein 5.5 g/dL (6.3-8.2) L 03/09/20 07:53 Albumin 2.7 g/dL (3.5-5.0) L 03/09/20 07:53 Urine Color YELLOW 03/08/20 09:40 Urine Appearance CLEAR 03/08/20 09:40 Urine pH 7.0 (5.0-9.0) 03/08/20 09:40 Ur Specific [place] 1.003 03/08/20 09:40 Urine Protein NEGATIVE mg/dL (NEGATIVE) 03/08/20 09:40 Urine Glucose (UA) NEGATIVE mg/dL (NEGATIVE) 03/08/20 09:40 Urine Ketones NEGATIVE mg/dL (NEGATIVE) 03/08/20 09:40 Urine Blood SMALL (NEGATIVE) H 03/08/20 09:40 Urine Nitrite NEGATIVE (NEGATIVE) 03/08/20 09:40 Urine Bilirubin NEGATIVE (NEGATIVE) 03/08/20 09:40 Urine Urobilinogen NEGATIVE mg/dL (<2.0) 03/08/20 09:40 Ur Leukocyte Esterase TRACE (NEGATIVE) H 03/08/20 09:40 Urine WBC (Auto) 2 /HPF 03/08/20 09:40 Urine RBC (Auto) 0 /HPF 03/08/20 09:40 Urine Bacteria (Auto) TRACE /HPF 03/08/20 09:40 Squamous Epi Cells Auto 2 /HPF 03/08/20 09:40 Urine Creatinine 26.8 mg/dL (16-327) 03/08/20 09:40 Protein/Creatinin Ratio 2.0 mg/mg (0.0-0.2) H 03/08/20 09:40 Urine Total Protein 53.2 mg/dL (<12) H 03/08/20 09:40 Urine Ascorbic Acid NEGATIVE (NEGATIVE) 03/08/20 09:40 Urine Opiates Screen NEGATIVE 03/08/20 09:40 Urine Methadone Screen NEGATIVE 03/08/20 09:40 Ur Barbiturates Screen NEGATIVE 03/08/20 09:40 Ur Phencyclidine Scrn NEGATIVE 03/08/20 09:40 Ur Amphetamines Screen NEGATIVE 03/08/20 09:40 U Benzodiazepines Scrn NEGATIVE 03/08/20 09:40 Urine Cocaine Screen NEGATIVE 03/08/20 09:40 U Marijuana (THC) Screen NEGATIVE 03/08/20 09:40 RPR NONREACTIVE (NONREACTIVE) 03/08/20 10:00 Slides for Path Review PATHOLOGIST REVIEWED 03/09/20 07:53 Blood Type AB POSITIVE 03/08/20 10:00 Antibody Screen NEGATIVE 03/08/20 10:00 Plan Plan of Treatment: d/c home, f/up with Heme/ Onc as scheduled and with [facility] in one week for a BP check Time Spent: Less than 30 Minutes
[2020-03-11] MEDS: FERROUS SULFATE 325 MG TABLET PO SCH (11:06)
[2020-03-11] MEDS: SENNOSIDES/DOCUSATE 8.6-50 MG 1 EACH TABLET PO SCH (11:06)
[2020-03-11] MEDS: DOCUSATE SODIUM 100 MG CAPSULE PO SCH (11:06)
[2020-03-11] MEDS: PRENATAL VITAMIN W DHA CAPSULE PO SCH (11:06)
[2020-03-11] MEDS: FAMOTIDINE 20 MG TABLET PO SCH ×2 (11:07)
== END 2020-03-11 12:55 | disposition home or self-care (01) | DRG 806 ==
LOC: LC 09:28 → LR 10:06 → 2S 03-09 09:51
PROVIDERS: ADMIT Student in an Organized Health Care Education/Training Program; ATTEND Student in an Organized Health Care Education/Training Program
PROC: 10907ZC Drainage of Amniotic Fluid, Therapeutic from Products of Conception, Via Natural or Artificial Opening (ICD-10-PCS; 2020-03-08)
PROC: 10E0XZZ Delivery of Products of Conception, External Approach (ICD-10-PCS; principal; 2020-03-09)
PROC: 0HQ9XZZ Repair Perineum Skin, External Approach (ICD-10-PCS; 2020-03-09)
PROC: 3E033VJ Introduction of Other Hormone into Peripheral Vein, Percutaneous Approach (ICD-10-PCS; 2020-03-09)
DX: O14.04 Mild to moderate pre-eclampsia, complicating childbirth (principal); D62 Acute posthemorrhagic anemia; Z37.0 Single live birth; O70.0 First degree perineal laceration during delivery; O72.3 Postpartum coagulation defects; D69.59 Other secondary thrombocytopenia; O90.81 Anemia of the puerperium; O32.6XX0 Maternal care for compound presentation, not applicable or unspecified; Z3A.39 39 weeks gestation of pregnancy
CPT/HCPCS: 36415; 80053; 80307; 81001; 82570; 83615; 84156; 84550; 85025; 85027; 85384; 85610; 85730; 86592; 86850; 86900; 86901; 94760; J0360; J2300; J2405; J2550; J2590; J3010; J3490; S0028